=== PATIENT | female | born 1960 | race Caucasian/White ===

== ENCOUNTER → 2016-08-11 | Outpatient (CLI) | payer BC, MEDICAID ==
[~2016-08-11] MED LIST: AMBIEN CR 12.12.5 MG PO; ATIVAN 1MG T1 MG/TAB PO; B-121000 MCG PO; COLACE 100100 MG/CAP PO; FLONASE NASAL S16 GM NS; LIPITOR 10MG10 MG PO; MAGNESIUM ELEM300 MG PO; MULTIPLE VITAMI1 CAP PO; PATADAY 2.5 ML2.5 ML OU; PRILOSEC 20MG20 MG PO; PROAIR HFA0.09 MG/AC IH; PROBIOTIC FORMU1 CAP PO; SEROQUEL300 MG PO; ULTRAM 50MG TAB50 MG PO; ZOFRAN ODT4 MG PO
== END ==
LOC: COL.RAD 11:08
DX: R19.09 Other intra-abdominal and pelvic swelling, mass and lump (principal)
CPT/HCPCS: Q9967

== ENCOUNTER → 2017-02-11 | Outpatient (CLI) | payer BC | LOC: COL.RAD 09:50 | DX: Z90.5 Acquired absence of kidney (principal); C49.9 Malignant neoplasm of connective and soft tissue, unspecified; R91.1 Solitary pulmonary nodule; R91.8 Other nonspecific abnormal finding of lung field | CPT/HCPCS: Q9967 ==

== ENCOUNTER 2017-03-17 16:26 | Observation (INO) | payer BC ==
[~2017-03-17] VITALS: Ht 162.6 cm; Wt 126.1 kg
[2017-03-17 17:14] LABS: BASO # 0.1 (0.0-0.2); BASO % 0.4 % (0.0-2.0); EOS # 0.1 (0.0-0.7); EOS % 0.3 % (0-4.0); GRAN # 13.4 (1.4-6.5); GRAN % 85.1 % (42.2-75.2); LYMPH # 1.6 (1.2-3.4); MEAN CELL VOLUME 82 fl (80.0-100.0); MEAN CORPUSCULAR HGB CONC 32 g/dl (33.0-37.0); MEAN PLATELET VOLUME 10.1 fl (7.4-10.4); MONO # 0.5 (0.1-0.6); MONO % 3.2 % (1.7-9.3); PLATELET COUNT 391 K/mm3 (130-400); REDCELL DISTRIBUTION WIDTH-CV 14.6 % (11.5-14.5)
[2017-03-17 17:15] LABS: ACETONE,SERUM NEGATIVE; HEMOGLOBIN 11.9 g/dl (12.5-16.0); MEAN CORPUSCULAR HEMOGLOBIN 26 pg (27.0-31.0)
[2017-03-17 17:16] LABS: HEMATOCRIT 36.8 % (37.0-47.0)
[2017-03-17 17:22] LABS: ALANINE AMINOTRANSFERASE 24 U/L (9-52); ALBUMIN 4.9 gm/dL (3.5-5.0); ALKALINE PHOSPHATASE 227 U/L (50-136); ANION GAP 16 mmol/L (7-16); AST,SGOT 24 U/L (15-37); BILIRUBIN,TOTAL 0.5 mg/dL (0.0-1.0); BLOOD UREA NITROGEN 25 mg/dL (7-17); C-REACTIVE PROTEIN 2.2 mg/dL (0.0-0.9); CARBON DIOXIDE 21 mmol/L (22-30); CHLORIDE 93 mmol/L (98-107); CREATININE, serum 0.92 mg/dL (0.52-1.25); POTASSIUM 4.9 mmol/L (3.4-5.0); SODIUM 130 mmol/L (137-145); TOTAL PROTEIN 8.8 gm/dL (6.4-8.2)
[2017-03-17 17:23] LABS: GLUCOSE 565 mg/dL (74-106)
[2017-03-17] MEDS ORDERED: AMOXICILLIN 8751 TAB PO (17:28)
[2017-03-17] MEDS ORDERED: PREDNISONE20 MG PO (17:28)
[2017-03-17] MEDS ORDERED: GLUCOPHAGE500 MG/TAB PO (17:34)
[2017-03-17] MEDS ORDERED: CYMBALTA 30MG30 MG PO (17:35)
[2017-03-17 18:12] LABS: COLLECTION METHOD CLEAN CATCH
[2017-03-17 18:30] LABS: PH 6 (5-8); SQUAMOUS EPITHELIAL 0-2 /hpf; URINE APPEARANCE Clear; URINE BACTERIA None Seen /hpf; URINE BILIRUBIN Negative (NEGATIVE); URINE BLOOD Negative (NEGATIVE); URINE COLOR Straw; URINE GLUCOSE 3+ (NEGATIVE); URINE KETONE Negative (NEGATIVE); URINE LEUKOCYTE ESTERASE Negative (NEGATIVE); URINE NITRATE Negative (NEGATIVE); URINE PROTEIN(semi-quant) Negative (NEGATIVE); URINE RBC None Seen /hpf; URINE UROBILINOGEN Negative (NEGATIVE)
[2017-03-17 21:34] LABS: ARTERIAL BLD GAS O2 SATURATION 96.7 % (92-100); ARTERIAL BLD GAS TCO2 CT 21.8; ARTERIAL BLOOD GAS BASE EXCESS -2.4 (-2-2); ARTERIAL BLOOD GAS HCO3 20.8 meq/L (22-26); ARTERIAL BLOOD GAS PCO2 30.9 mmHg (35-45); ARTERIAL BLOOD GAS PO2 92.7 mmHg (80-100); ARTERIAL BLOOD GAS pH 7.45 (7.35-7.45)
[2017-03-17 22:21] VITALS: BP 156/86; PULSE 72; TEMP 97.7
[2017-03-17 22:24] VITALS: BP 156/86; PULSE 72; TEMP 97.7
[2017-03-17] MEDS ORDERED: NEURONTIN300 MG/CAP PO (23:12)
[2017-03-17] MEDS ORDERED: AFRIN 15 ML15 ML NS (23:13)
[2017-03-18 00:02] VITALS: BP 150/73; PULSE 81; TEMP 97.4
[2017-03-18] MEDS ORDERED: [UNRECOGNIZED DRUG - OTHER] PO (01:23)
[2017-03-18 04:50] VITALS: BP 133/62; PULSE 88; TEMP 98.3
[2017-03-18 07:03] LABS: BASO # 0.1 (0.0-0.2); BASO % 0.6 % (0.0-2.0); EOS # 0.3 (0.0-0.7); EOS % 3.1 % (0-4.0); GRAN # 5.6 (1.4-6.5); GRAN % 55.5 % (42.2-75.2); LYMPH # 3.4 (1.2-3.4); MEAN CELL VOLUME 82 fl (80.0-100.0); MEAN CORPUSCULAR HGB CONC 32 g/dl (33.0-37.0); MONO # 0.7 (0.1-0.6); PLATELET COUNT 294 K/mm3 (130-400); RED BLOOD COUNT 3.82 M/mm3 (4.10-5.30); REDCELL DISTRIBUTION WIDTH-CV 14.7 % (11.5-14.5)
[2017-03-18 07:30] LABS: HEMATOCRIT 31.3 % (37.0-47.0); HEMOGLOBIN 10.1 g/dl (12.5-16.0); MEAN CORPUSCULAR HEMOGLOBIN 26 pg (27.0-31.0)
[2017-03-18 07:37] LABS: CALCIUM 8.5 mg/dL (8.4-10.2); CREATININE, serum 0.83 mg/dL (0.52-1.25); POTASSIUM 3.9 mmol/L (3.4-5.0)
[2017-03-18 09:26] VITALS: BP 135/63; PULSE 79; TEMP 97.6
[2017-03-18] MEDS ORDERED: ZITHROMAX 250M250 MG PO (11:33)
[2017-03-18] MEDS ORDERED: PROAIR HFA0.09 MG/AC IH (11:37)
[2017-03-18 12:27] VITALS: BP 156/80; PULSE 86; TEMP 97.8
[2017-03-24 20:31] LABS: MYCOPLASMA IGM ANTIBODIES 0.83 (0.00-0.90)
== END 2017-03-18 15:30 | disposition home or self-care (01) ==
LOC: COL.ER 16:26 → MEDICAL 19:32
PROVIDERS: Emergency Medicine; Nurse Practitioner Family
DX: E11.40 Type 2 diabetes mellitus with diabetic neuropathy, unspecified (principal); I10 Essential (primary) hypertension; E78.5 Hyperlipidemia, unspecified; G47.33 Obstructive sleep apnea (adult) (pediatric); F31.9 Bipolar disorder, unspecified; Z90.5 Acquired absence of kidney; Z79.84 Long term (current) use of oral hypoglycemic drugs; Z79.52 Long term (current) use of systemic steroids; Z88.6 Allergy status to analgesic agent; Z88.1 Allergy status to other antibiotic agents; Z85.528 Personal history of other malignant neoplasm of kidney; Z87.891 Personal history of nicotine dependence; Z83.3 Family history of diabetes mellitus; Z82.49 Family history of ischemic heart disease and other diseases of the circulatory system
CPT/HCPCS: 99223-AI; G0378; J0456; J0696; J1815; J7030; J7050

== ENCOUNTER → 2017-06-02 | Outpatient (CLI) | payer BC ==
[~2017-06-02] VITALS: Ht 166.4 cm; Wt 121.8 kg
[~2017-06-02] MED LIST changes: +AFRIN 15 ML15 ML NS; +ALBUTEROL0.83 MG/ML IH; +AMOXICILLIN 8751 TAB PO; +BYDUREON PEN2 MG SQ; +CLARITIN LIQUI-10 MG PO; +CYMBALTA 30MG30 MG PO; +FARXIGA10 PO; +GLUCOPHAGE500 MG/TAB PO; +NEURONTIN300 MG/CAP PO; +NYSTATIN CREAM15 GM TP; +PREDNISONE20 MG PO; +ZITHROMAX 250M250 MG PO; +[UNRECOGNIZED DRUG - OTHER] PO
[2017-06-02 15:02] VITALS: BP 112/62; PULSE 81
== END ==
LOC: LIGHT 13:29
DX: E11.9 Type 2 diabetes mellitus without complications (principal); E66.01 Morbid (severe) obesity due to excess calories; Z68.41 Body mass index [BMI] 40.0-44.9, adult; Z71.3 Dietary counseling and surveillance; G47.33 Obstructive sleep apnea (adult) (pediatric); E78.00 Pure hypercholesterolemia, unspecified
CPT/HCPCS: G0463

== ENCOUNTER → 2017-06-21 | Outpatient (CLI) | payer BC | LOC: LIGHT 13:54 | DX: Z01.89 Encounter for other specified special examinations (principal) ==

== ENCOUNTER → 2017-06-29 | Outpatient (CLI) | payer BC | LOC: LIGHT 13:53 | DX: Z01.818 Encounter for other preprocedural examination (principal) ==

== ENCOUNTER → 2017-07-07 | Outpatient (CLI) | payer BC ==
[~2017-07-07] VITALS: Ht 166.4 cm; Wt 121.3 kg
[2017-07-07 14:25] VITALS: BP 124/70; PULSE 80
== END ==
LOC: LIGHT 13:42
DX: E11.9 Type 2 diabetes mellitus without complications (principal); E66.01 Morbid (severe) obesity due to excess calories; Z68.41 Body mass index [BMI] 40.0-44.9, adult; Z71.3 Dietary counseling and surveillance; G47.33 Obstructive sleep apnea (adult) (pediatric); E78.00 Pure hypercholesterolemia, unspecified
CPT/HCPCS: G0463

== ENCOUNTER → 2017-08-09 | Outpatient (CLI) | payer BC ==
[~2017-08-09] VITALS: Ht 166.4 cm; Wt 121.3 kg
[2017-08-09 16:11] VITALS: BP 148/72; PULSE 88
== END ==
LOC: LIGHT 15:10
DX: E11.9 Type 2 diabetes mellitus without complications (principal); E66.01 Morbid (severe) obesity due to excess calories; Z68.41 Body mass index [BMI] 40.0-44.9, adult; Z71.3 Dietary counseling and surveillance; G47.33 Obstructive sleep apnea (adult) (pediatric); E78.00 Pure hypercholesterolemia, unspecified
CPT/HCPCS: G0463

== ENCOUNTER → 2017-08-16 | Outpatient (CLI) | payer BC | LOC: COL.RAD 10:50 | DX: R19.09 Other intra-abdominal and pelvic swelling, mass and lump (principal); M89.8X8 Other specified disorders of bone, other site; Z90.5 Acquired absence of kidney | CPT/HCPCS: Q9967 ==

== ENCOUNTER → 2017-08-30 | Outpatient (CLI) | payer BC | LOC: BHSO 13:01 | DX: Z09 Encounter for follow-up examination after completed treatment for conditions other than malignant neoplasm (principal) ==

== ENCOUNTER → 2017-09-13 | Outpatient (CLI) | payer BC ==
[~2017-09-13] VITALS: Ht 166.4 cm; Wt 120.9 kg
[~2017-09-13] MED LIST changes: +SPIRIVA RESPIMAT4 GM IH; +[UNRECOGNIZED DRUG - OTHER] NS
[2017-09-13 15:52] VITALS: BP 134/64; PULSE 84
== END ==
LOC: LIGHT 10:43
DX: E11.9 Type 2 diabetes mellitus without complications (principal); G47.33 Obstructive sleep apnea (adult) (pediatric); E78.00 Pure hypercholesterolemia, unspecified; Z71.3 Dietary counseling and surveillance; Z68.41 Body mass index [BMI] 40.0-44.9, adult; E66.01 Morbid (severe) obesity due to excess calories
CPT/HCPCS: G0463

== ENCOUNTER → 2017-10-24 | Outpatient (CLI) | payer BC ==
[~2017-10-24] VITALS: Ht 166.4 cm; Wt 123.2 kg
[~2017-10-24] MED LIST changes: +CORICIDIN HBP1 EACH PO; +TYLENOL 500MG500 MG PO
[2017-10-24 13:37] VITALS: BP 148/80; PULSE 92
== END ==
LOC: LIGHT 11:49
DX: E11.9 Type 2 diabetes mellitus without complications (principal); G47.33 Obstructive sleep apnea (adult) (pediatric); E78.00 Pure hypercholesterolemia, unspecified; E66.01 Morbid (severe) obesity due to excess calories; Z68.41 Body mass index [BMI] 40.0-44.9, adult; Z71.3 Dietary counseling and surveillance
CPT/HCPCS: G0463

== ENCOUNTER 2017-11-07 06:27 | Day surgery (SDC) | payer BC ==
[~2017-11-07] VITALS: Ht 166.4 cm; Wt 124.0 kg
[2017-11-07 07:06] VITALS: BP 141/72; PULSE 81; TEMP 98.3
[2017-11-07] MEDS ORDERED: LIPITOR 10MG10 MG PO (07:14)
[2017-11-07] MEDS ORDERED: AMBIEN CR 12.12.5 MG PO (07:15)
[2017-11-07] MEDS ORDERED: SEROQUEL300 MG PO (07:15)
[2017-11-07] MEDS ORDERED: PRILOSEC 20MG20 MG PO (07:16)
[2017-11-07] MEDS ORDERED: ULTRAM 50MG TAB50 MG PO (07:16)
[2017-11-07] MEDS ORDERED: STOOL SOFTENER240 M1 PO (07:19)
[2017-11-07] MEDS ORDERED: GLUCOPHAGE1000 MG PO (07:19)
[2017-11-07] MEDS ORDERED: NEURONTIN300 MG/CAP PO (07:20)
[2017-11-07] MEDS ORDERED: ATIVAN 1MG T1 MG/TAB PO (07:21)
[2017-11-07] MEDS ORDERED: BYDUREON P2 MG/0.65 (07:22)
[2017-11-07] MEDS ORDERED: FARXIGA10 PO (07:22)
[2017-11-07] MEDS ORDERED: CORICIDIN HBP1 EAC1 PO (07:23)
[2017-11-07] MEDS ORDERED: PATADAY 2.5 ML2.5 ML OU (07:24)
[2017-11-07] MEDS ORDERED: SPIRIVA RE2.5 MCG/Ac IH (07:25)
[2017-11-07] MEDS ORDERED: ALBUTEROL0.83 MG/ML IH (07:25)
[2017-11-07] MEDS ORDERED: DYMISTA1 SPR NS (07:26)
[2017-11-07] MEDS ORDERED: TYLENOL 500MG500 MG PO (07:27)
[2017-11-07 07:50] VITALS: BP 141/69; PULSE 82; TEMP 98.2
[2017-11-07 08:05] VITALS: BP 141/85; PULSE 80
[2017-11-07 08:20] VITALS: BP 150/78; PULSE 77
== END 2017-11-07 08:44 | disposition home or self-care (01) ==
LOC: SDCO 06:27
DX: K20.9 Esophagitis, unspecified (principal); K29.30 Chronic superficial gastritis without bleeding
CPT/HCPCS: OP; J2250; J2405; J3010; J7030

== ENCOUNTER → 2017-12-05 | Outpatient (CLI) | payer BC ==
[~2017-12-05] MED LIST changes: +BYDUREON P2 MG/0.65; +CORICIDIN HBP1 EAC1 PO; +DYMISTA1 SPR NS; +GLUCOPHAGE1000 MG PO; +SPIRIVA RE2.5 MCG/Ac IH; +STOOL SOFTENER240 M1 PO
== END ==
LOC: LIGHT 11:03
DX: E11.65 Type 2 diabetes mellitus with hyperglycemia (principal); G47.33 Obstructive sleep apnea (adult) (pediatric); E78.00 Pure hypercholesterolemia, unspecified; E66.01 Morbid (severe) obesity due to excess calories; Z71.3 Dietary counseling and surveillance; Z68.42 Body mass index [BMI] 45.0-49.9, adult

== ENCOUNTER 2017-12-28 05:32 | Day surgery (SDC) | payer BC ==
[~2017-12-28] VITALS: Ht 165.1 cm; Wt 118.2 kg
[2017-12-28] VITALS (11 sets, daily range): BP systolic 119–178; BP diastolic 58–90; PULSE 63–99; TEMP 97.2–98.7
[2017-12-28] MEDS ORDERED: GLUCOPHAGE500 MG/TAB PO (07:11)
[2017-12-28] MEDS ORDERED: MIRALAX PA17 GM/Dose PO ×2 (07:22→07:23)
[2017-12-28] MEDS ORDERED: FARXIGA5 PO (07:25)
[2017-12-29 00:52] VITALS: BP 132/54; PULSE 76; TEMP 98.2
[2017-12-29 03:41] VITALS: BP 121/56; PULSE 73; TEMP 97.4
[2017-12-29 08:24] VITALS: BP 131/53; PULSE 70; TEMP 98.3
[2017-12-29 12:06] VITALS: BP 144/72; PULSE 70; TEMP 98.3
== END 2017-12-29 12:30 | disposition home or self-care (01) ==
LOC: SDCO 05:32 → SURG 09:54 → SDCO 12-29 12:30
DX: E66.01 Morbid (severe) obesity due to excess calories (principal); Z68.41 Body mass index [BMI] 40.0-44.9, adult; K66.0 Peritoneal adhesions (postprocedural) (postinfection); G47.30 Sleep apnea, unspecified; E11.40 Type 2 diabetes mellitus with diabetic neuropathy, unspecified; E78.00 Pure hypercholesterolemia, unspecified; K21.9 Gastro-esophageal reflux disease without esophagitis; J45.909 Unspecified asthma, uncomplicated; Z79.899 Other long term (current) drug therapy
CPT/HCPCS: OP; J0330; J0690; J1100; J1885; J2405; J2550; J2704; J2710; J2765; J3010; J7030

== ENCOUNTER → 2018-01-23 | Outpatient (CLI) | payer BC ==
[~2018-01-23] MED LIST changes: +FARXIGA5 PO; +MIRALAX PA17 GM/Dose PO
== END ==
LOC: MC.RAD 12-13 13:40
DX: Z12.31 Encounter for screening mammogram for malignant neoplasm of breast (principal)

== ENCOUNTER → 2018-02-20 | Outpatient (CLI) | payer BC | LOC: COL.RAD 08:30 | DX: G95.89 Other specified diseases of spinal cord (principal); R19.00 Intra-abdominal and pelvic swelling, mass and lump, unspecified site; Z90.5 Acquired absence of kidney; Z90.89 Acquired absence of other organs; Z98.84 Bariatric surgery status | CPT/HCPCS: Q9967 ==

== ENCOUNTER → 2018-02-27 | Outpatient (CLI) | payer BC ==
[~2018-02-27] VITALS: Ht 166.4 cm; Wt 104.6 kg
[~2018-02-27] MED LIST changes: +[UNRECOGNIZED DRUG - OTHER] PO
[2018-02-27 13:17] VITALS: BP 134/70; PULSE 86
== END ==
LOC: LIGHT 01-02 13:04
DX: E11.9 Type 2 diabetes mellitus without complications (principal); G47.33 Obstructive sleep apnea (adult) (pediatric); Z98.84 Bariatric surgery status; E66.01 Morbid (severe) obesity due to excess calories; Z68.37 Body mass index [BMI] 37.0-37.9, adult; Z71.3 Dietary counseling and surveillance

== ENCOUNTER → 2018-04-10 | Outpatient (CLI) | payer BC ==
[~2018-04-10] VITALS: Ht 166.4 cm; Wt 97.7 kg
[~2018-04-10] MED LIST changes: +SEROQUEL 1100 MG/TAB PO
[2018-04-10 14:03] VITALS: BP 112/74; PULSE 64
== END ==
LOC: LIGHT 13:45
DX: E11.9 Type 2 diabetes mellitus without complications (principal); G47.33 Obstructive sleep apnea (adult) (pediatric); Z98.84 Bariatric surgery status; E66.9 Obesity, unspecified; Z68.35 Body mass index [BMI] 35.0-35.9, adult; Z71.3 Dietary counseling and surveillance
CPT/HCPCS: G0463

== ENCOUNTER → 2018-07-17 | Outpatient (CLI) | payer BC ==
[~2018-07-17] VITALS: Ht 166.4 cm; Wt 89.4 kg
[~2018-07-17] MED LIST changes: +CALCIUM CARBON650 M2 PO; +FLEXERIL 1010 MG/TAB PO; +MAGNESIUM CITR100 MG PO; +MOBIC15 MG PO; +VITAMIN D32000 IU PO
[2018-07-17 14:15] VITALS: BP 110/60; PULSE 68
== END ==
LOC: LIGHT 11:20
DX: E11.9 Type 2 diabetes mellitus without complications (principal); G47.33 Obstructive sleep apnea (adult) (pediatric); Z98.84 Bariatric surgery status; E66.01 Morbid (severe) obesity due to excess calories; Z68.32 Body mass index [BMI] 32.0-32.9, adult; Z71.3 Dietary counseling and surveillance
CPT/HCPCS: G0463

== ENCOUNTER → 2019-02-12 | Outpatient (CLI) | payer BC | LOC: MC.RAD 11:38 | DX: Z12.31 Encounter for screening mammogram for malignant neoplasm of breast (principal) ==

== ENCOUNTER → 2019-09-10 | Outpatient (CLI) | payer BC | LOC: COL.RAD 10:00 | DX: M47.812 Spondylosis without myelopathy or radiculopathy, cervical region (principal); M48.02 Spinal stenosis, cervical region; M89.38 Hypertrophy of bone, other site; G56.02 Carpal tunnel syndrome, left upper limb; M77.8 Other enthesopathies, not elsewhere classified ==

== ENCOUNTER → 2019-09-13 | Outpatient (CLI) | payer BC | LOC: COL.RAD 07:55 | DX: C49.9 Malignant neoplasm of connective and soft tissue, unspecified (principal); N28.9 Disorder of kidney and ureter, unspecified; Z90.89 Acquired absence of other organs; Z90.5 Acquired absence of kidney; Z98.84 Bariatric surgery status; Z98.890 Other specified postprocedural states | CPT/HCPCS: Q9967 ==

== ENCOUNTER → 2019-09-19 | Outpatient (CLI) | payer BC | LOC: ZCOL.LAB 15:45 | DX: Z20.828 Contact with and (suspected) exposure to other viral communicable diseases (principal) ==

== ENCOUNTER → 2021-06-30 | Outpatient (CLI) | payer BC | LOC: MC.RAD 14:51 | DX: Z12.31 Encounter for screening mammogram for malignant neoplasm of breast (principal) ==

== ENCOUNTER → 2022-06-17 | Outpatient (CLI) | payer BC | LOC: MC.RAD 14:24 | DX: Z12.31 Encounter for screening mammogram for malignant neoplasm of breast (principal) ==